=== PATIENT | female | born 1955 | race Caucasian/White ===

== ENCOUNTER 2016-09-08 11:03 | Emergency (ER) | payer OTHER, BC ==
[~2016-09-08] VITALS: Ht 167.6 cm; Wt 106.6 kg
[~2016-09-08 11:03] MED LIST: AUGMENTIN 875875 MG PO; LISINOPRIL10 MG PO; MECLIZINE HCL25 M2 PO; MEGA B COMPLEX PO; NASONEX0.05 MG/AC NS; NORCO 10-325 T1 EACH PO; PREDNICOT20 MG PO; VITAMIN D2000 IU PO; ZOFRAN ODT4 MG SL; [UNRECOGNIZED DRUG - OTHER] PO
[2016-09-08] MEDS ORDERED: FLUTICASON0.05 MG/AC NAS (11:12)
[2016-09-08] MEDS ORDERED: NAPROSYN500 MG PO (12:27)
[2016-09-08] MEDS ORDERED: CYCLOBENZAPRINE10 MG PO (12:27)
[2016-09-08] MEDS ORDERED: MEDROL DOSEPAK4 MG PO (12:27)
== END 2016-09-08 12:28 | disposition home or self-care (01) ==
LOC: ED 11:03
DX: S39.012A Strain of muscle, fascia and tendon of lower back, initial encounter (principal); S66.912A Strain of unspecified muscle, fascia and tendon at wrist and hand level, left hand, initial encounter; Z88.8 Allergy status to other drugs, medicaments and biological substances; Z91.018 Allergy to other foods; Z91.013 Allergy to seafood; W22.8XXA Striking against or struck by other objects, initial encounter; Y93.89 Activity, other specified; Y92.9 Unspecified place or not applicable; Y99.9 Unspecified external cause status

== ENCOUNTER 2017-05-27 18:46 | Emergency (ER) | payer BC ==
[~2017-05-27] VITALS: Wt 108.9 kg
[~2017-05-27 18:46] MED LIST changes: +CYCLOBENZAPRINE10 MG PO; +FLUTICASON0.05 MG/AC NAS; +MEDROL DOSEPAK4 MG PO; +NAPROSYN500 MG PO
[2017-05-27 19:34] LABS: BASO % 0.4 % (0.0-1.0); EOS # 0.2 10*3/uL (0.0-0.4); EOS % 2.1 % (1.0-4.0); HEMATOCRIT 37.4 % (37.0-47.0); HEMOGLOBIN 12.7 g/dl (12.0-16.0); LYMPH # 1.4 10*3/uL (1.3-4.4); LYMPH % 14.1 % (27.0-41.0); MEAN CELL VOLUME 83.9 fl (81.0-99.0); MEAN CORPUSCULAR HGB 28.5 pg (27.0-31.0); MEAN PLATELET VOLUME 10.3 fl (9.6-12.3); MONO # 0.6 10*3/uL (0.1-1.0); MONO % 6.2 % (3.0-9.0); NEUT # 7.7 10*3/uL (2.3-7.9); NEUT % 76.8 % (47.0-73.0); PLATELET COUNT AUTOMATED 249 10*3/uL (130-400); RED BLOOD COUNT 4.46 10*6/uL (4.10-5.10); RED CELL DISTRI WIDTH 13.3 % (0-14.5)
[2017-05-27 19:42] LABS: ACT PARTIAL THROMBO TIME 24.8 SECONDS (20.8-31.5); INTERNATIONAL NORM RATIO 0.9 (2.0-3.5)
[2017-05-27 19:50] LABS: ALBUMIN 3.7 gm/dl (3.1-4.5); ALKALINE PHOSPHATASE 82 U/L (45-117); BUN 10 mg/dl (7-24); CHLORIDE 108 mmol/L (98-107); CREATININE 0.59 mg/dL (0.55-1.02); POTASSIUM 3.7 mmol/L (3.5-5.1); SGOT/AST 18 IU/L (3-35); SGPT/ALT 21 U/L (12-78); SODIUM 139 mmol/L (136-145); TOTAL PROTEIN 7.7 gm/dL (6.4-8.2)
[2017-05-27 19:53] LABS: TROPONIN I < 0.015 ng/ml (<0.045)
[2017-05-27] MEDS ORDERED: MEDI-MECLIZINE25 MG PO (20:17)
== END 2017-05-27 23:01 | disposition home or self-care (01) ==
LOC: ED 18:46
PROVIDERS: Physician Assistant
DX: R42 Dizziness and giddiness (principal); R11.2 Nausea with vomiting, unspecified; Z88.6 Allergy status to analgesic agent; Z91.013 Allergy to seafood; Z79.899 Other long term (current) drug therapy

== ENCOUNTER 2017-07-24 04:41 | Emergency (ER) | payer BC ==
[~2017-07-24] VITALS: Ht 167.6 cm; Wt 108.0 kg
[~2017-07-24 04:41] MED LIST changes: +MEDI-MECLIZINE25 MG PO
== END 2017-07-24 06:31 | disposition home or self-care (01) ==
LOC: ED 04:41
DX: S90.31XA Contusion of right foot, initial encounter (principal); S70.01XA Contusion of right hip, initial encounter; S86.811A Strain of other muscle(s) and tendon(s) at lower leg level, right leg, initial encounter; W01.0XXA Fall on same level from slipping, tripping and stumbling without subsequent striking against object, initial encounter; Y93.89 Activity, other specified; Y92.89 Other specified places as the place of occurrence of the external cause; Y99.8 Other external cause status